=== PATIENT | female | born 1980 | race Caucasian/White ===

== ENCOUNTER 2018-07-26 19:26 | Emergency (ER) | payer OTHER, BC | END 2018-07-26 20:43 | disposition home or self-care (01) | LOC: M ED 19:26 | DX: S83.91XA Sprain of unspecified site of right knee, initial encounter (principal); S99.911A Unspecified injury of right ankle, initial encounter; X50.9XXA Other and unspecified overexertion or strenuous movements or postures, initial encounter; Y92.018 Other place in single-family (private) house as the place of occurrence of the external cause; Z88.1 Allergy status to other antibiotic agents; Z88.8 Allergy status to other drugs, medicaments and biological substances; Z91.040 Latex allergy status; F17.210 Nicotine dependence, cigarettes, uncomplicated | CPT/HCPCS: 73564 ==

== ENCOUNTER → 2020-09-10 | Outpatient (CLI) | payer BC ==
--- NOTE | 2020-09-10 10:12 | REP ---
INDICATION: STRAIN OF MUSCLE. Patient reports a fall 1 month ago. COMPARISON: None. TECHNIQUE: Seven views including flexion extension lateral views. FINDINGS: Lateral views done in flexion, extension, and neutral position show preserved vertebral body heights and normal alignment. No fracture or subluxation is seen. Disc spaces are maintained. Prevertebral soft tissues are not widened. Oblique images demonstrate intact neural foramina bilaterally at each cervical level and normally aligned facets. AP and open-mouth odontoid views are unremarkable. IMPRESSION: Normal cervical spine series. <Electronically signed by Michele Garcia > 09/10/20 [id number]
== END ==
LOC: M WUC 09:50
PROVIDERS: ATTEND Physician Assistant
DX: S16.1XXA Strain of muscle, fascia and tendon at neck level, initial encounter (principal); X58.XXXA Exposure to other specified factors, initial encounter; Y92.89 Other specified places as the place of occurrence of the external cause; Y93.89 Activity, other specified; Y99.8 Other external cause status

== ENCOUNTER → 2024-12-20 | Outpatient (REF) | payer BC ==
[2024-12-20 14:15] LABS: HEMATOCRIT 36.7 % (36.0-47.0); HEMOGLOBIN 11.7 g/dl (12.0-15.5); MEAN CORPUSCULAR HGB CONC 31.9 g/dl (32.0-36.5); MEAN CORPUSCULAR VOLUME 91.1 fl (80.0-96.0); PLATELET COUNT, AUTOMATED 361 10^3/uL (150-450); RED BLOOD COUNT 4.03 10^6/uL (4.00-5.40); WHITE BLOOD COUNT 7.6 10^3/uL (4.0-10.0)
[2024-12-20 14:20] LABS: ALBUMIN 3.7 G/DL (3.2-5.2); ALKALINE PHOSPHATASE 95 U/L (35-104); ALT/SGPT 22 U/L (7.0-40); AST/SGOT 13 U/L (<34); BILIRUBIN,TOTAL 0.4 MG/DL (0.3-1.2); BLOOD UREA NITROGEN 13 MG/DL (9-23); CALCIUM LEVEL 9.6 MG/DL (8.5-10.1); CARBON DIOXIDE LEVEL 28 MMOL/L (20-31); CHLORIDE LEVEL 104 MMOL/L (98-107); CHOLESTEROL LEVEL 260 MG/DL (<200); CHOLESTEROL RISK RATIO 5.11 (<5); CREATININE FOR GFR 0.75 MG/DL (0.55-1.30); GLOMERULAR FILTRATION RATE > 90.0 (>58); GLUCOSE, FASTING 81 MG/DL (60-100); HDL CHOLESTEROL 50.8 MG/DL (>40); LDL CHOLESTEROL 180.4 MG/DL (<100); NON-HDL-C 209.2 MG/DL; POTASSIUM SERUM 4.5 MMOL/L (3.5-5.1); SODIUM LEVEL 139 MMOL/L (136-145); TOTAL PROTEIN 7.3 G/DL (5.7-8.2); TRIGLYCERIDES LEVEL 144 MG/DL (<150)
[2024-12-20 14:22] LABS: THYROID STIMULATING HORMONE 2.053 uIU/ML (0.55-4.78); TOTAL 25(OH) VITAMIN D 18.4 NG/ML (20.0-100.0)
[2024-12-20 14:33] LABS: HEMOGLOBIN A1c 4.7 % (4.0-6.0)
== END ==
LOC: M LAB REF 13:44
PROVIDERS: ATTEND Student in an Organized Health Care Education/Training Program
DX: N92.6 Irregular menstruation, unspecified (principal); E55.9 Vitamin D deficiency, unspecified; Z68.32 Body mass index [BMI] 32.0-32.9, adult

== ENCOUNTER → 2025-01-20 | Outpatient (REF) | payer BC | LOC: M LAB REF 12:31 | PROVIDERS: ATTEND Physician Assistant Medical | DX: N61.1 Abscess of the breast and nipple (principal) ==